=== PATIENT | female | born 1985 | race Asian ===

== ENCOUNTER 2021-01-28 09:25 | Observation (INO) | payer MEDICAID, OTHER ==
[~2021-01-28] VITALS: Ht 154.9 cm; Wt 67.6 kg
== END 2021-01-28 10:57 | disposition home or self-care (01) ==
LOC: LDRP 09:25
PROVIDERS: ADMIT Obstetrics & Gynecology; ATTEND Obstetrics & Gynecology
DX: O48.0 Post-term pregnancy (principal); O41.03X0 Oligohydramnios, third trimester, not applicable or unspecified; Z3A.40 40 weeks gestation of pregnancy
CPT/HCPCS: 59025; 76818; 81002; G0378

== ENCOUNTER 2021-01-30 16:21 | Observation (INO) | payer MEDICAID ==
[2021-01-30] MEDS ORDERED: PREN-96 PO (17:09)
== END 2021-01-30 18:00 | disposition home or self-care (01) ==
LOC: LDRP 16:21
PROVIDERS: ADMIT Specialist; ATTEND Specialist
DX: O48.0 Post-term pregnancy (principal); Z3A.40 40 weeks gestation of pregnancy
CPT/HCPCS: 59025; 76818; 81002; G0378

== ENCOUNTER 2021-02-01 15:07 | Observation (INO) | payer MEDICAID ==
[~2021-02-01 15:07] MED LIST: PREN-96 PO
== END 2021-02-01 16:26 | disposition home or self-care (01) ==
LOC: LDRP 15:07
PROVIDERS: ADMIT Specialist; ATTEND Specialist
DX: O48.0 Post-term pregnancy (principal); Z3A.40 40 weeks gestation of pregnancy
CPT/HCPCS: 59025; 76818; 81002; G0378

== ENCOUNTER 2021-02-04 14:40 | Inpatient (IN) | payer MEDICAID ==
[~2021-02-04] VITALS: Ht 154.9 cm; Wt 68.0 kg
[2021-02-04] MEDS ORDERED: WITCH HAZEL-GLYCERIN PAD TOP PRN (15:15)
[2021-02-04] MEDS ORDERED: PROMETHAZINE HCL 25 MG/ML 1ML IV PRN (15:15)
[2021-02-04] MEDS ORDERED: BUTORPHANOL TARTRATE 2 MG/1 ML VIAL IV PRN ×2 (15:15)
[2021-02-04] MEDS ORDERED: PROMETHAZINE HCL 25 MG/ML 1ML IM PRN (15:15)
[2021-02-04] MEDS ORDERED: LIDOCAINE 2%HCL (LOCAL ANESTH.) INJ 20ML MDV IJ PRN (15:15)
[2021-02-04] MEDS ORDERED: PHISODERM TOP SOLN 240ML BTL TOP PRN (15:15)
[2021-02-04] MEDS ORDERED: DERMOPLAST 60ML BOTTLE TOP PRN (15:15)
[2021-02-04] MEDS: LACTATED RINGER'S 1,000 ML IV SCH ×3 (15:52→20:56)
[2021-02-04 16:46] LABS: Basophils # (auto) 0.1 10 ^3/uL (0-0.2); Basophils % (auto) 0.5 % (0.0-2.0); Eosinophils # (auto) 0 10 ^3/uL (0-0.8); Eosinophils % (auto) 0.2 % (0.0-7.0); Hematocrit 40.2 % (36.0-46.0); Hemoglobin 13.6 g/dL (12.2-16.2); Lymphocytes # (auto) 1.3 10 ^3/uL (0.4-5.4); Lymphocytes % (auto) 12.9 % (10.0-50.0); Mean Corpuscular Hemoglobin 31.5 pg (28.0-32.0); Mean Corpuscular Hgb Conc. 33.9 g/dL (32.0-36.0); Mean Corpuscular Volume 92.9 fL (80.0-100.0); Monocytes # (auto) 0.6 10 ^3/uL (0-1.3); Monocytes % (auto) 6.4 % (0.0-12.0); Neutrophils # (auto) 8.1 10 ^3/uL (1.6-8.6); Nucleated Red Blood Cells % 0.1 %; Red Blood Cells 4.33 10^6/uL (4.0-5.20); Red Cell Distribution Width 14.1 % (11.8-14.3); White Blood Cell 10.1 10^3/uL (4.4-10.8)
[2021-02-04 16:59] LABS: Calcium 9.7 mg/dL (8.5-10.1); Potassium 3.8 mmol/L (3.5-5.1)
[2021-02-04 17:03] LABS: BUN/Creatinine Ratio 13.1; Bilirubin, Total 0.3 mg/dL (0.2-1.0); Total Protein 7.2 g/dL (6.4-8.2)
[2021-02-04 17:09] LABS: INR 0.89 (0.9-1.15); Partial Thromboplastin Time 27.1 sec (23.0-31.2)
[2021-02-04] MEDS ORDERED: fentaNYL CITRATE 100 MCG/2 ML VL IV ONE (17:30)
[2021-02-04] MEDS ORDERED: ePHEDrine SULFATE 50 MG/ML AMP IV ONE (17:30)
[2021-02-04] MEDS ORDERED: LACT. RINGERS/OXYTOCIN 20UNITS 1,000 ML IV ONE (17:30)
[2021-02-04] MEDS ORDERED: LACTATED RINGER'S 500 ML IV ONE (17:30)
[2021-02-04] MEDS ORDERED: ROPIVACAINE HCL 200 ML EPI SCH (17:30)
[2021-02-04 17:39] LABS: Alcohol, Urine < 3.0 mg/dL (0-10); Amphetamine Screen, Urine NEGATIVE (NEGATIVE); Barbiturate Scree,Urine NEGATIVE (NEGATIVE); Benzodiazephine Screen, Urine NEGATIVE (NEGATIVE); Cannabinoid Screen, Urine NEGATIVE (NEGATIVE); Cocaine Screen, Urine NEGATIVE (NEGATIVE); Opiate Scree,Urine NEGATIVE (NEGATIVE); Phencyclidine Screen, Urine NEGATIVE (NEGATIVE)
[2021-02-04 17:47] LABS: Urine Bacteria FEW /hpf (None Seen); Urine Blood Negative /uL (Negative); Urine Mucus FEW (None Seen); Urine WBC 1 /hpf (0 - 5)
[2021-02-04] MEDS ORDERED: LACT. RINGERS/OXYTOCIN 20UNITS 1,000 ML IV SCH (18:30)
[2021-02-05] MEDS ORDERED: ACETAMINOPHEN 325 MG TAB PO PRN (02:00)
[2021-02-05 03:25] VITALS: BP 100/58
[2021-02-05] MEDS: IBUPROFEN 600 MG TAB PO PRN ×3 (04:45→21:00)
[2021-02-05 05:07] LABS: RPR Non Reactive (Non Reactive)
[2021-02-05 06:55] VITALS: BP 108/55
[2021-02-05 11:22] VITALS: BP 120/72
[2021-02-05 15:25] VITALS: BP 114/60
[2021-02-05] MEDS ORDERED: ROPIVACAINE HCL 200 ML EPI SCH (17:30)
[2021-02-05 19:00] VITALS: BP 109/73
[2021-02-05 23:00] VITALS: BP 93/57
[2021-02-06 03:00] VITALS: BP 87/59
[2021-02-06 05:00] VITALS: BP 92/52
[2021-02-06 06:55] VITALS: BP 107/66
[2021-02-06] MEDS: IBUPROFEN 600 MG TAB PO PRN (07:05)
== END 2021-02-06 10:55 | disposition home or self-care (01) | DRG 560 ==
LOC: LDRP 14:40 → OBSVTOIN 15:05 → LDRP 02-05 04:20
PROVIDERS: ADMIT Obstetrics & Gynecology; ATTEND Obstetrics & Gynecology
PROC: 10E0XZZ Delivery of Products of Conception, External Approach (ICD-10-PCS; principal; 2021-02-04)
PROC: 0KQM0ZZ Repair Perineum Muscle, Open Approach (ICD-10-PCS; 2021-02-04)
PROC: 3E0R3BZ Introduction of Anesthetic Agent into Spinal Canal, Percutaneous Approach (ICD-10-PCS; 2021-02-04)
PROC: 00HU33Z Insertion of Infusion Device into Spinal Canal, Percutaneous Approach (ICD-10-PCS; 2021-02-04)
DX: O69.81X0 Labor and delivery complicated by cord around neck, without compression, not applicable or unspecified (principal); O70.1 Second degree perineal laceration during delivery; O77.0 Labor and delivery complicated by meconium in amniotic fluid; Z20.822 Contact with and (suspected) exposure to COVID-19; Z3A.41 41 weeks gestation of pregnancy; Z37.0 Single live birth; Z88.0 Allergy status to penicillin
CPT/HCPCS: 36415; 59025; 59409; 62282; 80053; 80307; 81001; 81002; 85025; 85610; 85730; 86592; 86850; 86900; 86901; 87426; 94762; 96360; 96361; G0378; J2590